=== PATIENT | female | born 1985 | race Asian ===

== ENCOUNTER 2023-06-20 17:59 | Emergency (ER) | payer OTHER ==
[~2023-06-20] VITALS: Ht 149.9 cm; Wt 47.6 kg
[2023-06-20] MEDS ORDERED: KETOROLAC TROMETHAMINE 15 MG/ML VIAL ONE (18:41)
[2023-06-20] MEDS ORDERED: diphenhydrAMINE HCL 50 MG/ML VIAL ONE (18:41)
[2023-06-20] MEDS ORDERED: METOCLOPRAMIDE HCL 10 MG/2 ML VIAL ONE (18:42)
[2023-06-20] MEDS: KETOROLAC TROMETHAMINE 15 MG/ML VIAL IV ONE (18:50)
[2023-06-20] MEDS: METOCLOPRAMIDE HCL 10 MG/2 ML VIAL IV ONE (18:50)
[2023-06-20] MEDS: diphenhydrAMINE HCL 50 MG/ML VIAL IV ONE (18:50)
[2023-06-20] MEDS: IV NS 0.9% 1,000 ML BAG IV ONE (18:50)
[2023-06-20] MEDS ORDERED: ACET-2605 PO (19:39)
[2023-06-20] MEDS ORDERED: IBUP-1955 PO (19:39)
[2023-06-20 19:51] VITALS: BP 116/78; TEMP 98.6; O2SAT 97
== END 2023-06-20 19:51 | disposition home or self-care (01) ==
LOC: ER 18:05
DX: G44.309 Post-traumatic headache, unspecified, not intractable (principal); Z79.899 Other long term (current) drug therapy; Z60.2 Problems related to living alone
CPT/HCPCS: 99284; 96374; 96375; 96361; J1200; J2765; J7030; J1885